=== PATIENT | male | born 1985 | race Caucasian/White ===

== ENCOUNTER 2024-02-16 08:30 | Emergency (ER) | payer BC ==
[~2024-02-16] VITALS: Ht 167.6 cm; Wt 91.0 kg
[2024-02-16 08:57] VITALS: O2SAT 98
[2024-02-16] MEDS: KETOROLAC 30MG/ML VIAL IM ONE (09:34)
[2024-02-16] MEDS ORDERED: IBUP-2029 MT (10:37)
[2024-02-16 11:06] VITALS: BP 144/88; PULSE 82; RESP 16; TEMP 36.83628; O2SAT 98
== END 2024-02-16 11:15 | disposition home or self-care (01) ==
LOC: ER 08:37
DX: M89.8X7 Other specified disorders of bone, ankle and foot (principal)
CPT/HCPCS: 73630; 96372; 99283; J1885; Z7610 ×2